=== PATIENT | male | born 1975 | race Hispanic/Latino ===

== ENCOUNTER 2018-09-29 19:27 | Emergency (ER) | payer SELFPAY ==
[~2018-09-29] VITALS: Ht 188 cm; Wt 100.0 kg
[~2018-09-29 19:27] MED LIST: NAPROSYN500 MG PO
[2018-09-29] MEDS ORDERED: KLOR-CON 1010 MEQ PO (19:36)
[2018-09-29] MEDS ORDERED: AMLOD/BENAZP1 CA3 PO (19:37)
[2018-09-29] MEDS ORDERED: HYDROCHLOROT25 MG PO (19:37)
[2018-09-29] MEDS ORDERED: BACTRIM DS1 TAB PO (20:14)
[2018-09-29] MEDS ORDERED: TRAMADOL HCL50 MG PO (20:14)
[2018-09-29 20:38] VITALS: BP 196/106
== END 2018-09-29 20:38 | disposition home or self-care (01) | DRG 603 ==
LOC: ED 19:27
PROC: 0H9GXZZ Drainage of Left Hand Skin, External Approach (ICD-10-PCS; principal; 2018-09-29)
DX: L02.512 Cutaneous abscess of left hand (principal); I10 Essential (primary) hypertension; F17.210 Nicotine dependence, cigarettes, uncomplicated

== ENCOUNTER 2018-09-30 11:16 | Emergency (ER) | payer SELFPAY ==
[~2018-09-30] VITALS: Ht 182.9 cm; Wt 105.0 kg
[~2018-09-30 11:16] MED LIST changes: +AMLOD/BENAZP1 CA3 PO; +BACTRIM DS1 TAB PO; +HYDROCHLOROT25 MG PO; +KLOR-CON 1010 MEQ PO; +TRAMADOL HCL50 MG PO
[2018-09-30 12:21] LABS: HEMOGLOBIN 14.3 g/dl (14.0-18.0); IMMATURE GRANULOCYTES 0.4 % (0.0-5.0); MEAN CELL VOLUME 82.4 fL CALC (80.0-100.0); NEUT# 12.96 thou/uL (1.82-7.42); RED BLOOD COUNT 5.1 mill/uL (4.70-6.10); RED CELL DISTRI WIDTH 12.8 % (11.5-15.5)
[2018-09-30 12:32] LABS: ALBUMIN 4.3 g/dL (3.2-5.0); ALKALINE PHOSPHATASE 127 u/l (38-126); BUN 17 mg/dL (9-20); BUN/CREATININE RATIO 14 (12-20 (CALC)); CARBON DIOXIDE 33 mmol/l (22-30); CHLORIDE 95 mmol/l (95-108); CREATININE 1.2 mg/dL (0.7-1.3); GFR > 60 ML/MIN (>=60 (CALC)); GFR FOR AFR.AMER. > 60 ML/MIN (>=60 (CALC)); SGOT/AST 35 u/l (17-59); SODIUM 137 mmol/l (137-146)
[2018-09-30 12:42] LABS: ANION GAP 12 (6-22 (CALC)); BILIRUBIN, TOTAL 0.9 mg/dL (0.0-1.4); POTASSIUM 3.1 mmol/l (3.5-5.1)
[2018-09-30 14:04] LABS: URINE BILIRUBIN - DIPSTICK NEGATIVE (NEGATIVE); URINE BLOOD DIPSTICK NEGATIVE (NEGATIVE); URINE COLOR YELLOW; URINE GLUCOSE - DIPSTICK 100 mg/dL (NEGATIVE); URINE KETONE NEGATIVE (NEGATIVE); URINE LEUK ESTERASE NEGATIVE (Negative); URINE NITRITE - DIPSTICK NEGATIVE (Negative); URINE PROTEIN - DIPSTICK NEGATIVE (NEG-TRACE)
[2018-09-30 14:05] LABS: URINE CLARITY CLEAR
[2018-09-30 14:06] LABS: BARBITURATES NEGATIVE (NEGATIVE); COCAINE NEGATIVE (NEGATIVE); METHADONE NEGATIVE (NEGATIVE); OXCYCODONE NEGATIVE (NEGATIVE); TETRAHYDROCANNABIONOL NEGATIVE (NEGATIVE); TRICYLIC ANTIDEPRESSANTS NEGATIVE (NEGATIVE)
[2018-09-30 15:10] VITALS: BP 193/113
== END 2018-09-30 15:10 | disposition short-term general hospital (02) | DRG 603 ==
LOC: ED 11:16
DX: L02.512 Cutaneous abscess of left hand (principal); L03.114 Cellulitis of left upper limb; I10 Essential (primary) hypertension; F17.200 Nicotine dependence, unspecified, uncomplicated; T37.0X6A Underdosing of sulfonamides, initial encounter; B95.61 Methicillin susceptible Staphylococcus aureus infection as the cause of diseases classified elsewhere; Z91.128 Patient's intentional underdosing of medication regimen for other reason

== ENCOUNTER 2019-06-04 10:26 | Emergency (ER) | payer SELFPAY ==
[2019-06-04] MEDS ORDERED: NORVASC10 M1 PO (10:44)
[2019-06-04] MEDS ORDERED: SPIRONOLACTONE25 MG PO (10:45)
[2019-06-04] MEDS ORDERED: CEPHALEXIN500 M1 PO (11:19)
[2019-06-04] MEDS ORDERED: BACTRIM DS1 TAB PO (11:19)
[2019-06-04 11:45] VITALS: BP 145/98
== END 2019-06-04 11:45 | disposition left against medical advice (07) | DRG 603 ==
LOC: ED 10:26
DX: L03.115 Cellulitis of right lower limb (principal); I10 Essential (primary) hypertension; F17.290 Nicotine dependence, other tobacco product, uncomplicated; Z91.19 Patient's noncompliance with other medical treatment and regimen

== ENCOUNTER 2020-03-16 16:26 | Emergency (ER) | payer SELFPAY ==
[~2020-03-16] VITALS: Ht 188 cm; Wt 95.5 kg
[~2020-03-16 16:26] MED LIST changes: +CEPHALEXIN500 M1 PO; +NORVASC10 M1 PO; +SPIRONOLACTONE25 MG PO
[2020-03-16] MEDS ORDERED: ASPIRIN81 MG PO (16:53)
[2020-03-16 17:10] LABS: HEMATOCRIT 37.1 % (39.0-50.0); IMMATURE GRANULOCYTES 0.3 % (0.0-5.0); MEAN CELL VOLUME 81.2 fL CALC (80.0-100.0); MEAN CORPUSCULAR HGB 26.3 pG CALC (26.0-32.0); MEAN CORPUSCULAR HGB CONC 32.3 g/dL CAL (32.0-36.0); NEUT# 7.57 thou/uL (1.82-7.42); RED BLOOD COUNT 4.57 mill/uL (4.70-6.10); RED CELL DISTRI WIDTH 13.7 % (11.5-15.5)
[2020-03-16 17:23] LABS: URINE BILIRUBIN - DIPSTICK NEGATIVE (NEGATIVE); URINE BLOOD DIPSTICK NEGATIVE (NEGATIVE); URINE COLOR YELLOW; URINE GLUCOSE - DIPSTICK NEGATIVE (NEGATIVE); URINE KETONE NEGATIVE (NEGATIVE); URINE LEUK ESTERASE NEGATIVE (NEGATIVE); URINE NITRITE - DIPSTICK NEGATIVE (Negative); URINE PROTEIN - DIPSTICK TRACE mg/dL (NEG-TRACE); URINE SPECIFIC GRAVITY >=1.030
[2020-03-16 17:27] LABS: ALKALINE PHOSPHATASE 99 u/l (38-126); ANION GAP 12 (6-22 (CALC)); BILIRUBIN, TOTAL 0.9 mg/dL (0.0-1.4); BUN 26 mg/dL (9-20); BUN/CREATININE RATIO 21 (12-20 (CALC)); CARBON DIOXIDE 27 mmol/l (22-30); CHLORIDE 104 mmol/l (95-108); CREATININE 1.2 mg/dL (0.7-1.3); GFR > 60 ML/MIN (>=60 (CALC)); GFR FOR AFR.AMER. > 60 ML/MIN (>=60 (CALC)); LIPASE 166 u/l (23-300); POTASSIUM 3.3 mmol/l (3.5-5.1); SGOT/AST 40 u/l (17-59); SODIUM 139 mmol/l (137-146)
[2020-03-16 17:28] LABS: ALBUMIN 3.3 g/dL (3.2-5.0); TOTAL PROTEIN 5.9 g/dL (6.3-8.2)
[2020-03-16] MEDS ORDERED: K-TAB20 MEQ PO (18:31)
[2020-03-16] MEDS ORDERED: LASIX 40 MG TAB40 MG PO (18:31)
[2020-03-16 18:55] VITALS: BP 146/98
== END 2020-03-16 18:55 | disposition home or self-care (01) | DRG 293 ==
LOC: ED 16:26
PROVIDERS: Family Medicine
DX: I11.0 Hypertensive heart disease with heart failure (principal); I50.9 Heart failure, unspecified; E87.6 Hypokalemia; F15.10 Other stimulant abuse, uncomplicated; F17.290 Nicotine dependence, other tobacco product, uncomplicated

== ENCOUNTER 2020-03-19 16:01 | Emergency (ER) | payer SELFPAY ==
[~2020-03-19] VITALS: Ht 188 cm; Wt 90.0 kg
[~2020-03-19 16:01] MED LIST changes: +ASPIRIN81 MG PO; +K-TAB20 MEQ PO; +LASIX 40 MG TAB40 MG PO
[2020-03-19] MEDS ORDERED: LASIX20 MG PO (17:04)
[2020-03-19] MEDS ORDERED: POTASSIUM CHLO20 ME1 PO (17:04)
[2020-03-19 17:20] VITALS: BP 138/89
== END 2020-03-19 17:20 | disposition home or self-care (01) | DRG 293 ==
LOC: ED 16:01
DX: I11.0 Hypertensive heart disease with heart failure (principal); I50.9 Heart failure, unspecified; F15.10 Other stimulant abuse, uncomplicated; F17.200 Nicotine dependence, unspecified, uncomplicated

== ENCOUNTER 2021-02-23 18:40 | Emergency (ER) | payer BC ==
[~2021-02-23] VITALS: Ht 188 cm; Wt 90.0 kg
[~2021-02-23 18:40] MED LIST changes: +LASIX20 MG PO; +POTASSIUM CHLO20 ME1 PO
[2021-02-23] MEDS ORDERED: NEO/POLY/HC AD (20:45)
[2021-02-23 20:51] VITALS: BP 134/81
[2021-02-23] MEDS ORDERED: LASIX 20 MG TAB20 MG PO (20:58)
[2021-02-23] MEDS ORDERED: TOPROL XL25 MG PO (20:59)
[2021-02-23] MEDS ORDERED: ASPIRIN EC LOW81 MG PO (20:59)
[2021-02-23] MEDS ORDERED: LOSARTAN/HCT1 TA2 PO (20:59)
[2021-02-23] MEDS ORDERED: K-TAB20 MEQ PO (21:03)
[2021-02-23] MEDS ORDERED: SPIRONOLACTONE25 MG PO (21:03)
== END 2021-02-23 21:08 | disposition home or self-care (01) | DRG 605 ==
LOC: ED 18:40
DX: S00.411A Abrasion of right ear, initial encounter (principal); I10 Essential (primary) hypertension; F17.200 Nicotine dependence, unspecified, uncomplicated; X58.XXXA Exposure to other specified factors, initial encounter

== ENCOUNTER → 2021-12-26 | Emergency (ER) | payer BC ==
[~2021-12-26] VITALS: Ht 188 cm; Wt 95.5 kg
[~2021-12-26] MED LIST changes: +ASPIRIN EC LOW81 MG PO; +BACTROBAN TOP; +LASIX 20 MG TAB20 MG PO; +LOSARTAN/HCT1 TA2 PO; +NEO/POLY/HC AD; +TOPROL XL25 MG PO
[2021-12-26 16:49] VITALS: BP 121/73
[2021-12-26 17:00] VITALS: BP 120/73
[2021-12-26 17:34] VITALS: BP 120/73
== END | disposition home or self-care (01) | DRG 603 ==
LOC: ED 16:34
DX: L03.115 Cellulitis of right lower limb (principal)

== ENCOUNTER 2021-12-31 14:57 | Emergency (ER) | payer BC ==
[~2021-12-31] VITALS: Ht 188 cm; Wt 95.0 kg
[~2021-12-31 14:57] MED LIST changes: -BACTROBAN TOP
[2021-12-31 15:09] VITALS: BP 141/92
[2021-12-31] MEDS ORDERED: BACTROBAN TOP (15:28)
[2021-12-31 15:31] VITALS: BP 138/88
== END 2021-12-31 15:36 | disposition home or self-care (01) | DRG 603 ==
LOC: ED 14:57
DX: L03.115 Cellulitis of right lower limb (principal); I10 Essential (primary) hypertension; F17.220 Nicotine dependence, chewing tobacco, uncomplicated; B95.8 Unspecified staphylococcus as the cause of diseases classified elsewhere

== ENCOUNTER 2023-03-22 21:32 | Emergency (ER) | payer OTHER ==
[~2023-03-22] VITALS: Ht 185.4 cm; Wt 89.0 kg
[~2023-03-22 21:32] MED LIST changes: +BACTROBAN TOP; +TAM75CAP PO
[2023-03-22 21:50] VITALS: BP 131/89
[2023-03-22 22:30] LABS: BASO% 0.6 % (0-3); EOS% 2.4 % (0-8); HEMATOCRIT 35.4 % (39.0-50.0); HEMOGLOBIN 11.8 g/dl (14.0-18.0); IMMATURE GRANULOCYTES 0.1 % (0.0-5.0); LYMPH% 13.9 % (15-41); MEAN CELL VOLUME 83.3 fL CALC (80.0-100.0); MEAN CORPUSCULAR HGB 27.8 pG CALC (26.0-32.0); MEAN CORPUSCULAR HGB CONC 33.3 g/dL CAL (32.0-36.0); NEUT# 6.15 thou/uL (1.82-7.42); RED BLOOD COUNT 4.25 mill/uL (4.70-6.10); RED CELL DISTRI WIDTH 13.1 % (11.5-15.5)
[2023-03-22 22:31] VITALS: BP 119/82
[2023-03-22 23:12] LABS: ALBUMIN 3.3 g/dL (3.2-5.0); ALKALINE PHOSPHATASE 137 u/l (38-126); BILIRUBIN, TOTAL 0.8 mg/dL (0.2-1.3); BUN 30 mg/dL (9-20); BUN/CREATININE RATIO 19 (12-20 (CALC)); CARBON DIOXIDE 25 mmol/l (22-30); CHLORIDE 108 mmol/l (95-108); CPK 421 u/l (55-170); CREATININE 1.5 mg/dL (0.7-1.3); GFR FOR AFR.AMER. > 60 ML/MIN (>=60 (CALC)); GFR OTHER RACES 51 ML/MIN (>=60 (CALC)); SODIUM 138 mmol/l (137-146); TOTAL PROTEIN 5.7 g/dL (6.3-8.2)
[2023-03-22 23:20] LABS: ANION GAP 9 (6-22 (CALC)); SGOT/AST 85 u/l (17-59)
[2023-03-23] MEDS ORDERED: DOXY-CAPS100 MG PO (00:10)
[2023-03-23] MEDS ORDERED: OMNI-PAC300 MG PO (00:10)
[2023-03-23 00:28] VITALS: BP 119/82
== END 2023-03-23 00:34 | disposition home or self-care (01) | DRG 603 ==
LOC: ED 21:32
PROVIDERS: Internal Medicine
DX: L03.116 Cellulitis of left lower limb (principal); L03.114 Cellulitis of left upper limb; L03.115 Cellulitis of right lower limb; R74.8 Abnormal levels of other serum enzymes; R79.89 Other specified abnormal findings of blood chemistry; N28.9 Disorder of kidney and ureter, unspecified; I10 Essential (primary) hypertension; F17.200 Nicotine dependence, unspecified, uncomplicated

== ENCOUNTER 2023-03-27 17:50 | Observation (INO) | payer OTHER ==
[~2023-03-27] VITALS: Ht 185.4 cm; Wt 92.2 kg
[2023-03-27] VITALS (8 sets, daily range): BP systolic 138–151; BP diastolic 96–112
[~2023-03-27 17:50] MED LIST changes: +DOXY-CAPS100 MG PO; +OMNI-PAC300 MG PO
[2023-03-27 18:38] LABS: BASO% 0.6 % (0-3); EOS% 2.5 % (0-8); HEMATOCRIT 39.3 % (39.0-50.0); HEMOGLOBIN 12.7 g/dl (14.0-18.0); IMMATURE GRANULOCYTES 0.1 % (0.0-5.0); LYMPH% 23.6 % (15-41); MEAN CELL VOLUME 84.7 fL CALC (80.0-100.0); MEAN CORPUSCULAR HGB 27.4 pG CALC (26.0-32.0); MEAN CORPUSCULAR HGB CONC 32.3 g/dL CAL (32.0-36.0); MONO% 7.3 % (2-13); NEUT# 6.32 thou/uL (1.82-7.42); NEUT% 65.9 % (42-76); RED BLOOD COUNT 4.64 mill/uL (4.70-6.10); RED CELL DISTRI WIDTH 13.2 % (11.5-15.5)
[2023-03-27 18:59] LABS: ALBUMIN 3.6 g/dL (3.2-5.0); BILIRUBIN, TOTAL 0.5 mg/dL (0.2-1.3); CREATININE 1.6 mg/dL (0.7-1.3); POTASSIUM 3.5 mmol/l (3.5-5.1); TOTAL PROTEIN 6.3 g/dL (6.3-8.2)
[2023-03-27] MEDS ORDERED: LASIX20 MG PO (19:39)
[2023-03-28 04:23] VITALS: BP 144/104
[2023-03-28 04:25] VITALS: BP 136/102
[2023-03-28 06:55] VITALS: BP 137/96
[2023-03-28 10:54] VITALS: BP 128/93
[2023-03-28 14:49] VITALS: BP 129/88
[2023-03-28 19:12] VITALS: BP 123/85
[2023-03-29 00:17] VITALS: BP 125/88
[2023-03-29 05:00] VITALS: BP 117/89
[2023-03-29 06:07] LABS: BASO% 0.5 % (0-3); EOS% 4.5 % (0-8); IMMATURE GRANULOCYTES 0.5 % (0.0-5.0); LYMPH% 20.7 % (15-41); MEAN CELL VOLUME 83.2 fL CALC (80.0-100.0); MEAN CORPUSCULAR HGB CONC 32.5 g/dL CAL (32.0-36.0); MONO% 6.9 % (2-13); NEUT# 6.12 thou/uL (1.82-7.42); NEUT% 66.9 % (42-76); RED BLOOD COUNT 4.81 mill/uL (4.70-6.10); RED CELL DISTRI WIDTH 13.1 % (11.5-15.5)
[2023-03-29 06:39] LABS: ALBUMIN 3.5 g/dL (3.2-5.0); BILIRUBIN, TOTAL 0.6 mg/dL (0.2-1.3); CREATININE 1.6 mg/dL (0.7-1.3); MAGNESIUM 2.2 mg/dL (1.6-2.3); POTASSIUM 4.1 mmol/l (3.5-5.1)
[2023-03-29 07:24] VITALS: BP 140/106
[2023-03-29 07:25] VITALS: BP 137/108
[2023-03-29 11:03] VITALS: BP 139/106
[2023-03-29] MEDS ORDERED: CARVEDILOL3.125 MG PO (11:18)
[2023-03-29] MEDS ORDERED: ALDACTONE25 MG PO (11:19)
[2023-03-29] MEDS ORDERED: COZAAR25 MG PO (11:19)
[2023-03-29 12:44] VITALS: BP 136/96
== END 2023-03-29 12:50 | disposition home or self-care (01) | DRG 292 ==
LOC: ED 17:50 → ED-I 20:20 → ED 03-28 03:09 → MS2 03-28 03:10
PROVIDERS: Nurse Practitioner; Nurse Practitioner Family; ADMIT Internal Medicine; ATTEND Internal Medicine
DX: I11.0 Hypertensive heart disease with heart failure (principal); N17.9 Acute kidney failure, unspecified; I50.9 Heart failure, unspecified; F17.200 Nicotine dependence, unspecified, uncomplicated; T50.996A Underdosing of other drugs, medicaments and biological substances, initial encounter; Z91.128 Patient's intentional underdosing of medication regimen for other reason; Z91.199 Patient's noncompliance with other medical treatment and regimen due to unspecified reason; Z23 Encounter for immunization
CPT/HCPCS: J1650

== ENCOUNTER 2023-09-07 06:59 | Emergency (ER) | payer OTHER ==
[2023-09-07] VITALS (7 sets, daily range): BP systolic 120–142; BP diastolic 91–104
[~2023-09-07] VITALS: Ht 185.4 cm; Wt 95.0 kg
[~2023-09-07 06:59] MED LIST changes: +ALDACTONE25 MG PO; +CARVEDILOL3.125 MG PO; +COZAAR25 MG PO; +FEROSUL325 MG PO; +LIPITOR20 M1 PO; +OMEPRAZOLE DR40 MG PO; +SPIRONOLACT25 MG PO; +VIBRAMYCIN100 M2 PO; +VISTARIL 50MG C50 M1 PO; +ZOFRAN4 MG/TAB PO
[2023-09-07 07:29] LABS: BASO% 0.3 % (0-3); EOS% 3.4 % (0-8); HEMATOCRIT 42.1 % (39.0-50.0); HEMOGLOBIN 13.6 g/dl (14.0-18.0); IMMATURE GRANULOCYTES 0.1 % (0.0-5.0); LYMPH% 14.6 % (15-41); MEAN CELL VOLUME 88.6 fL CALC (80.0-100.0); MEAN CORPUSCULAR HGB 28.6 pG CALC (26.0-32.0); MEAN CORPUSCULAR HGB CONC 32.3 g/dL CAL (32.0-36.0); MONO% 7.9 % (2-13); NEUT# 6.95 thou/uL (1.82-7.42); NEUT% 73.7 % (42-76); RED BLOOD COUNT 4.75 mill/uL (4.70-6.10); RED CELL DISTRI WIDTH 16.5 % (11.5-15.5)
[2023-09-07 07:45] LABS: ALBUMIN 3.8 g/dL (3.2-5.0); BILIRUBIN, TOTAL 1.1 mg/dL (0.2-1.3); CREATININE 1.5 mg/dL (0.7-1.3); POTASSIUM 4.3 mmol/l (3.5-5.1); TOTAL PROTEIN 6.9 g/dL (6.3-8.2)
[2023-09-07] MEDS ORDERED: LASIX 40 MG TAB40 MG PO (10:23)
== END 2023-09-07 10:34 | disposition home or self-care (01) | DRG 313 ==
LOC: ED 06:59
PROVIDERS: Family Medicine
DX: R07.9 Chest pain, unspecified (principal); R06.02 Shortness of breath; I11.0 Hypertensive heart disease with heart failure; I50.9 Heart failure, unspecified; Z20.822 Contact with and (suspected) exposure to COVID-19
CPT/HCPCS: Q9967

== ENCOUNTER 2023-09-22 00:14 | Observation (INO) | payer OTHER ==
[2023-09-22] VITALS (29 sets, daily range): BP systolic 114–162; BP diastolic 74–120
[~2023-09-22] VITALS: Ht 185.4 cm; Wt 91.0 kg
--- NOTE | 2023-09-22 00:30 | NUR ---
PT AMBULATORY TO ROOM 9 AT THIS TIME FROM [facility]
[2023-09-22] MEDS ORDERED: NITROGLYCERIN 2% OINT UD 1 GM/PAK TD ONE (00:50)
[2023-09-22] MEDS ORDERED: FUROSEMIDE 40 MG/4 ML SDV IV ONE (00:50)
[2023-09-22] MEDS ORDERED: ASPIRIN 81 MG/TAB PO ONE (00:50)
[2023-09-22] MEDS ORDERED: hydrALAZINE HCL 20 MG/ML VIAL(1 ML) IV ONE (00:50)
[2023-09-22 01:22] LABS: BASO% 0.3 % (0-3); EOS% 2.8 % (0-8); HEMOGLOBIN 14.4 g/dl (14.0-18.0); IMMATURE GRANULOCYTES 0.1 % (0.0-5.0); LYMPH% 12.8 % (15-41); MEAN CELL VOLUME 88.4 fL CALC (80.0-100.0); MEAN CORPUSCULAR HGB 28.3 pG CALC (26.0-32.0); MONO% 6.6 % (2-13); NEUT# 7.22 thou/uL (1.82-7.42); NEUT% 77.4 % (42-76); RED BLOOD COUNT 5.09 mill/uL (4.70-6.10); RED CELL DISTRI WIDTH 16.6 % (11.5-15.5)
[2023-09-22 01:28] LABS: ALBUMIN 4.3 g/dL (3.2-5.0); BILIRUBIN, TOTAL 0.9 mg/dL (0.2-1.3); CREATININE 1.5 mg/dL (0.7-1.3); INTERNATIONAL NORMALIZED RATIO 1.2 RATIO (0.7-1.3); POTASSIUM 4.2 mmol/l (3.5-5.1); TOTAL PROTEIN 7.5 g/dL (6.3-8.2)
[2023-09-22 01:31] LABS: PROTHROMBIN TIME 11.8 SECONDS (9.0-12.5)
[2023-09-22 01:50] LABS: D-DIMER 0.81 mg/L (0.19-0.60)
[2023-09-22] MEDS ORDERED: ONDANSETRON HCl 4 MG/2 ML SDV IV ONE (02:25)
[2023-09-22] MEDS ORDERED: MORPHINE SULFATE 4 MG/ML VIAL IV ONE (02:25)
[2023-09-22] MEDS ORDERED: LABETALOL HCL 20 MG/ 4 ML CARTRG IV ONE (02:25)
--- NOTE | 2023-09-22 02:55 | NUR ---
pt to ct via wheelchair
--- NOTE | 2023-09-22 03:30 | NUR ---
pt to u/s via wheelchair at this time
--- NOTE | 2023-09-22 06:31 | NUR ---
PT HAD OUTPUT OF [id number]
[2023-09-22] MEDS ORDERED: ALUM & MAG HYDROX-SIMETHICONE 30 ML PO PRN (06:40)
[2023-09-22] MEDS ORDERED: ONDANSETRON 4 MG/TAB ODT PO PRN (06:40)
[2023-09-22] MEDS ORDERED: IBUPROFEN 800 MG/TAB PO PRN (06:40)
[2023-09-22] MEDS ORDERED: ONDANSETRON HCl 4 MG/2 ML SDV IV PRN (06:40)
[2023-09-22] MEDS ORDERED: MAGNESIUM HYDROXIDE 30 ML UDC PO PRN (06:40)
[2023-09-22] MEDS ORDERED: FAMOTIDINE 10MG/ML 2ML SDV IV PRN (06:40)
--- NOTE | 2023-09-22 07:09 | NUR ---
REPORT GIVEN TO [facility] AT THIS TIME
--- NOTE | 2023-09-22 07:58 | NUR ---
PT ARRIVED TO THE UNIT VIA WC, PT AMBULATED FROM THE WC TO THE BEDSIDE SCALE AND THEN TO THE BED, PT TOLERATED WELL, PT A&O X3, PUPILS PERRL, HR NORMAL S1 S2, ABD SOFT WITH ACTIVE BOWEL SOUNDS, NO EDEMA NOTED, 20G RAC IV SL, PT ORIENTED TO THE ROOM AND CALL [facility], SAFETY MEASURES IN PLACE, CALL [facility] WITHIN REACH
--- NOTE | 2023-09-22 08:07 | NUR ---
patient weight, and vital signs; weight-91kg temp-96.8 pulse-79 resp-20 b/p-142/102 o2-99 on room air nurse notified of patient blood pressure.
[2023-09-22] MEDS ORDERED: FUROSEMIDE 40 MG/4 ML SDV IV SCH (08:30)
[2023-09-22] MEDS ORDERED: LASIX20 MG PO ×2 (10:37→10:38)
--- NOTE | 2023-09-22 12:05 | NUR ---
PT LAYING IN BED RESTING WITH EYES CLOSED, AROUSES EASILY TO VERBAL STIMULI, PT DENIES ANY NEEDS AT THIS TIME, CALL [facility] WITHIN REACH
--- NOTE | 2023-09-22 13:00 | NUR ---
Discharge instructions given. Patient verbalizes understanding of same. Discharged in stable condition via Ambulatory to Home with staff. All belongings sent with pt.
== END 2023-09-22 13:00 | disposition home or self-care (01) | DRG 291 ==
LOC: ED 00:14 → ED-I 06:14 → ED 06:40 → MS2 06:40
PROVIDERS: Internal Medicine; ADMIT Internal Medicine; ATTEND Internal Medicine
DX: I13.0 Hypertensive heart and chronic kidney disease with heart failure and stage 1 through stage 4 chronic kidney disease, or unspecified chronic kidney disease (principal); I50.23 Acute on chronic systolic (congestive) heart failure; N18.30 Chronic kidney disease, stage 3 unspecified; F15.10 Other stimulant abuse, uncomplicated; F17.220 Nicotine dependence, chewing tobacco, uncomplicated
CPT/HCPCS: G0378; Q9967

== ENCOUNTER 2023-11-14 22:34 | Emergency (ER) | payer OTHER ==
[~2023-11-14] VITALS: Ht 185.4 cm; Wt 95.0 kg
[2023-11-14] MEDS ORDERED: DOXYCYCLINE HYCLATE 100 MG/CAP PO ONE (23:00)
[2023-11-14 23:25] VITALS: BP 122/82
== END 2023-11-14 23:25 | disposition home or self-care (01) | DRG 603 ==
LOC: ED 22:34
DX: L03.116 Cellulitis of left lower limb (principal); I13.0 Hypertensive heart and chronic kidney disease with heart failure and stage 1 through stage 4 chronic kidney disease, or unspecified chronic kidney disease; N18.9 Chronic kidney disease, unspecified; I50.9 Heart failure, unspecified

== ENCOUNTER 2024-01-30 19:47 | Observation (INO) | payer OTHER ==
[~2024-01-30] VITALS: Ht 185.4 cm; Wt 100.1 kg
[~2024-01-30 19:47] MED LIST changes: +ATORVASTATIN CA20 MG PO; +FERROUS SULFAT325 MG PO; +HYDROXYZ PAM25 MG PO
[2024-01-30 20:00] VITALS: BP 127/90
[2024-01-30 21:08] LABS: BASO% 0.6 % (0-3); EOS% 3.2 % (0-8); HEMATOCRIT 44.1 % (39.0-50.0); HEMOGLOBIN 13.9 g/dl (14.0-18.0); IMMATURE GRANULOCYTES 0.1 % (0.0-5.0); LYMPH% 15.9 % (15-41); MEAN CELL VOLUME 90.6 fL CALC (80.0-100.0); MEAN CORPUSCULAR HGB 28.5 pG CALC (26.0-32.0); MEAN CORPUSCULAR HGB CONC 31.5 g/dL CAL (32.0-36.0); MONO% 8.3 % (2-13); NEUT# 6.25 thou/uL (1.82-7.42); NEUT% 71.9 % (42-76); RED BLOOD COUNT 4.87 mill/uL (4.70-6.10)
[2024-01-30 21:30] LABS: ALBUMIN 3.5 g/dL (3.2-5.0); BILIRUBIN, TOTAL 1.3 mg/dL (0.2-1.3); CREATININE 1.8 mg/dL (0.7-1.3); POTASSIUM 4.5 mmol/l (3.5-5.1); TOTAL PROTEIN 6.1 g/dL (6.3-8.2)
[2024-01-30] MEDS ORDERED: FUROSEMIDE 40 MG/4 ML SDV IV ONE (22:00)
[2024-01-30] MEDS ORDERED: PIPERACILLIN Sodium-Tazobactam 3.375 GM in SODIUM CHLORIDE 0.9% 100 ML IV ONE (23:40)
[2024-01-31] MEDS ORDERED: ACETAMINOPHEN 325 MG/TAB PO PRN (00:15)
[2024-01-31] MEDS ORDERED: FUROSEMIDE 40 MG/4 ML SDV IV SCH (00:15)
[2024-01-31] MEDS ORDERED: MAGNESIUM HYDROXIDE 30 ML UDC PO PRN (00:15)
[2024-01-31] MEDS ORDERED: ASPIRIN LOW DOS81 M1 PO (00:17)
[2024-01-31] MEDS ORDERED: LOSARTAN POTASS25 MG PO (00:17)
[2024-01-31] MEDS ORDERED: ALDACTONE25 MG PO ×2 (00:17→08:12)
[2024-01-31] MEDS ORDERED: CARVEDILOL6.25 MG PO (00:19)
[2024-01-31] MEDS ORDERED: FUROSEMIDE20 MG PO ×2 (00:19→08:13)
[2024-01-31 02:31] VITALS: BP 128/92
[2024-01-31] MEDS ORDERED: FUROSEMIDE 40 MG/4 ML SDV IV ONE (08:05)
[2024-01-31] MEDS ORDERED: CIPROFLOXACN500 MG PO (08:13)
[2024-01-31] MEDS ORDERED: METRONIDAZOLE500 MG PO (08:14)
[2024-01-31] MEDS ORDERED: ENOXAPARIN SODIUM 40 MG/0.4 ML SYR SC SCH (21:00)
[2024-02-01] MEDS ORDERED: FUROSEMIDE 40 MG/4 ML SDV IV SCH (09:00)
== END 2024-01-31 11:23 | disposition home or self-care (01) | DRG 291 ==
LOC: ED 19:47 → ED-I 01-31 00:18
PROVIDERS: Emergency Medicine; ADMIT Internal Medicine; ATTEND Internal Medicine
DX: I13.0 Hypertensive heart and chronic kidney disease with heart failure and stage 1 through stage 4 chronic kidney disease, or unspecified chronic kidney disease (principal); I50.23 Acute on chronic systolic (congestive) heart failure; N18.9 Chronic kidney disease, unspecified; K52.9 Noninfective gastroenteritis and colitis, unspecified; I42.8 Other cardiomyopathies; E78.5 Hyperlipidemia, unspecified; F17.220 Nicotine dependence, chewing tobacco, uncomplicated; Z91.190 Patient's noncompliance with other medical treatment and regimen due to financial hardship
CPT/HCPCS: J1836; J1940; J2543

== ENCOUNTER 2024-03-01 19:55 | Emergency (ER) | payer OTHER ==
[~2024-03-01] VITALS: Ht 185.4 cm; Wt 99.8 kg
[~2024-03-01 19:55] MED LIST changes: +ASPIRIN LOW DOS81 M1 PO; +CARVEDILOL6.25 MG PO; +CIPROFLOXACN500 MG PO; +FUROSEMIDE20 MG PO; +LOSARTAN POTASS25 MG PO; +METRONIDAZOLE500 MG PO
[2024-03-01 21:18] VITALS: BP 125/96
[2024-03-01 21:30] VITALS: BP 130/97
[2024-03-01] MEDS ORDERED: BUMETANIDE 1 MG/TAB PO ONE (21:30)
[2024-03-01] MEDS ORDERED: CLOTRIMAZOLE W/ BETAMETHASONE CREAM 15 GM TUBE EX ONE (21:30)
[2024-03-01] MEDS ORDERED: DOXYCYCLINE HYCLATE 100 MG/CAP PO ONE (21:30)
[2024-03-01] MEDS ORDERED: LOTRIMIN AF JOCK1 % TOP (21:35)
[2024-03-01 21:45] VITALS: BP 160/111
[2024-03-01 22:00] VITALS: BP 152/108
[2024-03-01 22:04] VITALS: BP 152/108
== END 2024-03-01 22:04 | disposition home or self-care (01) | DRG 607 ==
LOC: ED 19:55
DX: B35.3 Tinea pedis (principal); L03.116 Cellulitis of left lower limb; I50.9 Heart failure, unspecified

== ENCOUNTER 2024-03-12 23:23 | Emergency (ER) | payer OTHER ==
[~2024-03-12] VITALS: Ht 185.4 cm; Wt 95.0 kg
[~2024-03-12 23:23] MED LIST changes: +LOTRIMIN AF JOCK1 % TOP
[2024-03-12 23:46] VITALS: BP 143/105
[2024-03-13] VITALS (8 sets, daily range): BP systolic 126–139; BP diastolic 94–109
[2024-03-13 00:45] LABS: URINE BILIRUBIN - DIPSTICK Negative (NEGATIVE); URINE BLOOD DIPSTICK Negative (NEGATIVE); URINE GLUCOSE - DIPSTICK Negative (NEGATIVE); URINE KETONE Negative (NEGATIVE); URINE LEUK ESTERASE Negative (NEGATIVE); URINE NITRITE - DIPSTICK Negative (Negative); URINE PROTEIN - DIPSTICK 100 mg/dL (NEG-TRACE); URINE UROBILINOGEN - DIPSTICK 0.2 E.U./dL (0.2)
[2024-03-13 00:46] LABS: BASO% 0.6 % (0-3); HEMATOCRIT 42.3 % (39.0-50.0); HEMOGLOBIN 13.7 g/dl (14.0-18.0); IMMATURE GRANULOCYTES 0.2 % (0.0-5.0); LYMPH% 21.1 % (15-41); MEAN CORPUSCULAR HGB 26.4 pG CALC (26.0-32.0); MEAN CORPUSCULAR HGB CONC 32.4 g/dL CAL (32.0-36.0); MONO% 10.2 % (2-13); NEUT# 4.18 thou/uL (1.82-7.42); NEUT% 64.9 % (42-76); RED BLOOD COUNT 5.19 mill/uL (4.70-6.10); RED CELL DISTRI WIDTH 14.8 % (11.5-15.5)
[2024-03-13 00:48] LABS: MEAN CELL VOLUME 81.5 fL CALC (80.0-100.0)
[2024-03-13 00:48] LABS: URINE COLOR Yellow
[2024-03-13 00:57] LABS: URINE MUCUS RARE hpf (NONE-FEW)
[2024-03-13 01:01] LABS: ALBUMIN 3.5 g/dL (3.2-5.0); BILIRUBIN, TOTAL 1.6 mg/dL (0.2-1.3); CREATININE 1.3 mg/dL (0.7-1.3); POTASSIUM 3.8 mmol/l (3.5-5.1); TOTAL PROTEIN 6.6 g/dL (6.3-8.2)
[2024-03-13] MEDS ORDERED: CLINDAMYCIN HC150 MG PO (01:59)
[2024-03-13] MEDS ORDERED: CLINDAMYCIN HCL 150 MG CAP PO ONE (02:05)
== END 2024-03-13 02:08 | disposition home or self-care (01) | DRG 603 ==
LOC: ED 23:23
PROVIDERS: Emergency Medicine
DX: L03.116 Cellulitis of left lower limb (principal); L03.115 Cellulitis of right lower limb; I13.0 Hypertensive heart and chronic kidney disease with heart failure and stage 1 through stage 4 chronic kidney disease, or unspecified chronic kidney disease; I50.22 Chronic systolic (congestive) heart failure; N18.9 Chronic kidney disease, unspecified; Z72.0 Tobacco use; Z88.2 Allergy status to sulfonamides; Z88.8 Allergy status to other drugs, medicaments and biological substances; Z91.199 Patient's noncompliance with other medical treatment and regimen due to unspecified reason

== ENCOUNTER 2024-03-22 19:34 | Emergency (ER) | payer OTHER ==
[~2024-03-22] VITALS: Ht 185.4 cm; Wt 94.0 kg
[~2024-03-22 19:34] MED LIST changes: +CLINDAMYCIN HC150 MG PO
[2024-03-22 19:45] VITALS: BP 127/92
[2024-03-22 20:00] VITALS: BP 130/88
[2024-03-22] MEDS ORDERED: oxyCODONE 5MG/ ACETAMINOPHEN 325MG TAB PO ONE (20:00)
[2024-03-22 20:18] LABS: BASO% 1.1 % (0-3); EOS% 1.9 % (0-8); HEMATOCRIT 43.6 % (39.0-50.0); HEMOGLOBIN 13.5 g/dl (14.0-18.0); IMMATURE GRANULOCYTES 0.2 % (0.0-5.0); LYMPH% 18.3 % (15-41); MEAN CORPUSCULAR HGB 25.7 pG CALC (26.0-32.0); MONO% 10.7 % (2-13); NEUT# 4.18 thou/uL (1.82-7.42); NEUT% 67.8 % (42-76); RED BLOOD COUNT 5.25 mill/uL (4.70-6.10); RED CELL DISTRI WIDTH 15.5 % (11.5-15.5)
[2024-03-22 20:30] LABS: ALBUMIN 3.5 g/dL (3.2-5.0); BILIRUBIN, TOTAL 1.9 mg/dL (0.2-1.3); CREATININE 1.3 mg/dL (0.7-1.3); TOTAL PROTEIN 6.4 g/dL (6.3-8.2)
[2024-03-22 20:31] LABS: POTASSIUM 5.1 mmol/l (3.5-5.1)
[2024-03-22 20:47] LABS: C-REACTIVE PROTEIN 1.3 mg/dL (0-0.9)
[2024-03-22] MEDS ORDERED: TINACTIN13 EX (21:10)
[2024-03-22 21:30] VITALS: BP 130/88
== END 2024-03-22 21:31 | disposition home or self-care (01) | DRG 607 ==
LOC: ED 19:34
PROVIDERS: Family Medicine
DX: B35.3 Tinea pedis (principal); L97.529 Non-pressure chronic ulcer of other part of left foot with unspecified severity; I13.0 Hypertensive heart and chronic kidney disease with heart failure and stage 1 through stage 4 chronic kidney disease, or unspecified chronic kidney disease; I43 Cardiomyopathy in diseases classified elsewhere; N18.9 Chronic kidney disease, unspecified; I50.9 Heart failure, unspecified; F17.220 Nicotine dependence, chewing tobacco, uncomplicated

== ENCOUNTER 2024-03-28 19:12 | Emergency (ER) | payer OTHER ==
[~2024-03-28] VITALS: Ht 185.4 cm; Wt 92.0 kg
[~2024-03-28 19:12] MED LIST changes: +TINACTIN13 EX
[2024-03-28 19:33] VITALS: BP 134/100
[2024-03-28] MEDS ORDERED: traMADol HCL 50 MG/TAB PO ONE (19:40)
[2024-03-28] MEDS ORDERED: DICLOFENAC SODIUM 75 MG/TAB PO ONE (19:40)
[2024-03-28] MEDS ORDERED: ACETAMINOPHEN 500 MG TAB PO ONE (19:40)
[2024-03-28] MEDS ORDERED: TRAMADOL HYDROC50 M1 PO (19:42)
[2024-03-28 19:45] VITALS: BP 133/93
[2024-03-28 20:05] VITALS: BP 133/93
== END 2024-03-28 20:05 | disposition home or self-care (01) | DRG 593 ==
LOC: ED 19:12
DX: L97.529 Non-pressure chronic ulcer of other part of left foot with unspecified severity (principal); I13.0 Hypertensive heart and chronic kidney disease with heart failure and stage 1 through stage 4 chronic kidney disease, or unspecified chronic kidney disease; N18.9 Chronic kidney disease, unspecified; I50.9 Heart failure, unspecified; Z72.0 Tobacco use